=== PATIENT | female | born 1980 | race Caucasian/White ===

== ENCOUNTER → 2022-05-09 08:14 | Outpatient (BNVA) | payer OTHER, SELFPAY | PROVIDERS: PCP Nurse Practitioner; Visit Provider Internal Medicine | DX: R00.2 Palpitations (principal) | CPT/HCPCS: 93005; 99202 ==

== ENCOUNTER → 2022-06-04 08:01 | Outpatient (REF) | payer OTHER, SELFPAY ==
--- NOTE | 2022-06-04 08:06 | HM_ITS ---
conclusion: 1. Patient was monitored for total period of 7 days and 22 hours 2. Baseline was normal sinus rhythm with average heart of 67 beats per minute 3. 37% of time heart rate below 60 beats per minute with lowest heart rate of 43 beats per minute during sleep hours and no significant pauses next 4. Very rare ectopy noted 5. No patient reported events MTDD
--- NOTE | 2022-06-04 08:06 | CA_ITS ---
Transthoracic Echocardiogram Patient (Last, First, Middle): Dominique Downey, Gender: Female Date of : 1980 Age: 41 Procedure Date: 06/04/2022 Procedure Type: Transthoracic Echocardiogram Location: OP Height: 167.64 cm Weight: 70.31 kg BSA: 1.79 m2 Heart Rate: bpm BP: 105 / 65 mmHg Tobacco Sorter: KIT Referring MD: Yared Abel MD Sightseeing Guide: Brannon Welsh MD Symptoms: R00.2 - Palpitations Study Quality: Adequate ECG Rhythm: Sinus Conclusions: - Normal study Findings Left Ventricle Normal left ventricular size, thickness, and systolic function. The visually estimated ejection fraction is between 60-65%. Diastolic function is normal for age. Peak GLS is -24.0% which is within normal limits. Right Ventricle Normal right ventricular cavity size and systolic function. Atria Both atria are normal in size. There is no evidence of interatrial shunt. Aortic Valve Normal aortic valve structure and function. There is no aortic valve stenosis. There is no aortic valve regurgitation. Mitral Valve Normal mitral valve structure and function. There is trace mitral valve regurgitation. There is no mitral valve stenosis. Pulmonic Valve The pulmonic valve is likely normal. Tricuspid Valve Normal tricuspid valve structure. There is trace tricuspid valve regurgitation. The right ventricular systolic pressure is normal. The right ventricular systolic pressure is 22 mmHg. Normal right atrial pressure. There is no evidence of pulmonary hypertension. Great Vessels All visible segments of the aorta are normal in size. The visualized portions of the pulmonary artery and branches are normal. Venous The inferior vena cava is normal in size and collapses greater than 50% with inspiration. Pericardium/Pleural There is no evidence of pericardial effusion. Prior Study Comparison No prior study available for comparison. Measurements 2D Linear Measurements IVSd: 0.67 0.6-0.9/0.6-1.0 cm LVIDd: 4.06 3.9-5.3/4.2-5.9 cm LVIDd Index: 2.27 2.4-3.2/2.2-3.1 cm/m2 LVIDs: 2.67 2.0-3.6 cm LVPWd: 0.75 0.7-1.1 cm LA Diam: 2.80 2.7-3.8/3.0-4.0 cm LAIDs Index: 1.56 1.5-2.3 cm/m2 LV Mass: 100.89 67-162/88-224 g LV Mass Index: 56.37 43-95/49-115 g/m2 LVOT Diam: 1.70 3.0+(-)1.3 cm 2D Systolic Function EF 4C: 61.30 >55% EF 2C: 67.50 >55% EF BiP: 64.60 >55% Mitral Valve MV Pk E: 1.06 MV PK A: 0.91 MV Decel Time: 219.00 E/A: 1.20 E'Lateral: 13.20 E'Medial: 9.14 E/E' Med: 11.60 E/E' Lat: 8.00 PHT: 64.00 MVA PHT: 3.44 Decel Schoolcraft: 4.84 Aortic Valve AoV Pk Bravo: 1.65 AoV Mn Bravo: 1.21 AoV VTI: 0.40 AoV Pk Grad: 11.00 Aov Mn Grad: 7.00 JESSEE Cont.VTI: 1.84 LVOT LVOT Pk Bravo: 1.46 LVOT Mn Bravo: 0.95 LVOT VTI: 0.32 LVOT Pk Grad: 9.00 LVOT Mn Grad: 4.00 LVOT Diam: 1.70 LVOT Area: 2.27 Diastolic Function MV Pk E: 1.06 MV Pk A: 0.91 E/A: 1.20 E'Medial: 9.14 E/E' Med: 11.60 E' Laterial: 13.20 E/E' Lat: 8.00 Right Ventricle TAPSE (mm): 26.50 TVS' Bravo: 13.40 Tricuspid Valve TR Pk Bravo: 2.20 TR Pk Grad: 19.00 RA Press: 3.00 RVSP: 22.00 Great Vessels Aorta Sinus of Valsalva: 2.75 2.0-3.[address] [place]: 2.14 1.7-3.4 cm Ao Asc: 2.90 2.1-3.4 cm Updated in Other Vendor System with Status of Final Brannon Welsh MD electronically signed on 06/05/2022 12:36:42 PM with status of Final
== END ==
LOC: HO.CARD 08:01
PROVIDERS: Visit Provider Internal Medicine
DX: R00.2 Palpitations (principal)
CPT/HCPCS: 93242; 93306; 93356